=== PATIENT | female | born 1955 | race Caucasian/White ===

== ENCOUNTER 2020-12-16 07:14 | Outpatient (CLI) | payer MEDICARE, OTHER ==
[~2020-12-16] VITALS: Ht 157.5 cm; Wt 70.5 kg
[2020-12-19] MEDS ORDERED: METO-333 PO (11:34)
[2020-12-19] MEDS ORDERED: LEVO88CA4 PO (11:34)
[2020-12-19] MEDS ORDERED: NF-MAG64T PO (11:34)
[2020-12-19] MEDS ORDERED: B1/B1TAB5 PO (11:34)
[2020-12-19] MEDS ORDERED: FERR29CA PO (11:34)
[2020-12-19] MEDS ORDERED: MULT-178 PO (11:34)
[2020-12-19] MEDS ORDERED: VIT-10 PO (11:34)
[2020-12-19] MEDS ORDERED: AMIN1CAP5 PO (11:34)
[2020-12-19] MEDS ORDERED: LATA7.5D OU (11:34)
== END 2020-12-19 11:35 | disposition home or self-care (01) ==
LOC: PREOP 07:14
PROVIDERS: ATTEND Specialist
DX: Z01.818 Encounter for other preprocedural examination (principal)

== ENCOUNTER 2020-12-23 11:15 | Day surgery (SDC) | payer MEDICARE, OTHER ==
[~2020-12-23] VITALS: Ht 165.1 cm; Wt 70.5 kg
[~2020-12-23 11:15] MED LIST: AMIN1CAP5 PO; B1/B1TAB5 PO; FERR29CA PO; LATA7.5D OU; LEVO88CA4 PO; METO-333 PO; MULT-178 PO; NF-MAG64T PO; VIT-10 PO
[2020-12-23] MEDS ORDERED: MIDAZOLAM 2 MG/2 ML (VERSED) VIAL ONE (11:21)
[2020-12-23] MEDS: TETRACAINE 0.5% OPHTH SOLN 4 ML BTL (SINGLE DOSE ONLY) OU PRN ×4 (11:25→11:41)
[2020-12-23] MEDS ORDERED: MOXIFLOXACIN OPHTH SOLN 5 MG/ML 0.3 ML SYRINGE OP ONE (11:30)
[2020-12-23] MEDS ORDERED: LIDOCAINE PF 1% 2 ML VIAL IR PRN (11:30)
[2020-12-23] MEDS: TROPICAMIDE 1% OPH SOLN (MYDRIACYL) 15 ML BTL OP SCH ×3 (11:30→11:42)
[2020-12-23] MEDS ORDERED: TIMOLOL MALEATE 0.5% 5 ML (TIMOPTIC) BTL OU PRN (11:30)
[2020-12-23] MEDS: PHENYLEPHRINE 10% OPHTH (NEO-SYN) 5 ML BTL OU SCH ×3 (11:30→11:42)
[2020-12-23] MEDS ORDERED: POVIDONE (BETADINE) OPHTH SOLN 5% 30 ML OP ONE (11:30)
[2020-12-23 11:45] VITALS: BP 167/74
--- NOTE | 2020-12-23 11:55 | Ophthalmologist Pre-Op Note ---
Pre-Operative Progress Note H&P Reviewed The H&P was reviewed, patient examined and no changes noted. Date H&P Reviewed: Dec 23, 2020 Time H&P Reviewed: 11:55 Pre-Op Dx Cataract, Right Eye WOO RAMIREZ MD Dec 23, 2020 11:55
--- NOTE | 2020-12-23 12:14 | Ophthalmology Operative Report ---
Cataract removal/placement IOL PREOPERATIVE DIAGNOSIS: Cataract Right Eye POSTOPERATIVE DIAGNOSIS: Cataract Right Eye PROCEDURE: Cataract removal and placement of posterior chamber implant, right eye SURGEON: Anish Ramirez ANESTHESIA: Topical with sedation COMPLICATIONS: None ESTIMATED BLOOD LOSS: Minimal DESCRIPTION OF PROCEDURE: After proper informed consent was obtained, the patient, a 65 female, was taken to the Operating Room and the right eye was anesthetized with tetracaine. The right eye was then prepped and draped in the usual manner. A wire lid speculum was placed. A paracentesis was made at the left hand position. Preservative free lidocaine was injected into the anterior chamber followed by viscoelastic. A clear corneal incision was made in the temporal position. A capsulorrhexis was preformed and the central nuclear and cortical material were removed. The posterior capsule was polished and Juaquin 19.5 AU00T0 IOL was placed into the capsular bag. The residual viscoelastic was aspirated and balanced saline solution was injected into the anterior chamber. Moxifloxacin was injected into the anterior chamber. The wound was checked and found to be water tight. The patient tolerated the procedure well without complications. ANISH RAMIREZ MD Dec 23, 2020 12:14
[2020-12-23 12:26] VITALS: BP 100/77
[2020-12-23] MEDS ORDERED: acetaZOLAMIDE ER 500 MG CAP (DIAMOX SEQUELS) PO ONE (12:30)
--- NOTE | 2020-12-23 13:32 | Anesthesia-General Post-Op ---
MAC Patient Condition Mental Status/LOC: Same as Preop Cardiovascular: Satisfactory Nausea/Vomiting: Absent Respiratory: Satisfactory Pain: Controlled Complications: Absent Post Op Complications Complications None Follow Up Care/Instructions Patient Instructions None needed. Anesthesiology Discharge Order Discharge Order Patient is doing well, no complaints, stable vital signs, no apparent adverse anesthesia problems. No complications reported per nursing. DANTE DONOVAN CRNA Dec 23, 2020 13:31
== END 2020-12-23 12:28 ==
LOC: SDC 11:15
PROVIDERS: ATTEND Specialist
DX: H25.11 Age-related nuclear cataract, right eye (principal); I10 Essential (primary) hypertension; E03.9 Hypothyroidism, unspecified; E78.00 Pure hypercholesterolemia, unspecified; Z79.899 Other long term (current) drug therapy
CPT/HCPCS: 66984; V2632

== ENCOUNTER 2021-01-02 07:00 | Outpatient (CLI) | payer MEDICARE, OTHER | END 2021-01-02 15:16 | LOC: PREOP 07:00 | PROVIDERS: ATTEND Specialist | DX: Z01.818 Encounter for other preprocedural examination (principal) ==

== ENCOUNTER 2021-01-06 10:36 | Day surgery (SDC) | payer MEDICARE, OTHER ==
[~2021-01-06] VITALS: Ht 165.1 cm; Wt 70.5 kg
[2021-01-06] MEDS: TETRACAINE 0.5% OPHTH SOLN 4 ML BTL (SINGLE DOSE ONLY) OU PRN ×4 (10:44→11:05)
[2021-01-06] MEDS ORDERED: MOXIFLOXACIN OPHTH SOLN 5 MG/ML 0.3 ML SYRINGE OP ONE (10:45)
[2021-01-06] MEDS ORDERED: POVIDONE (BETADINE) OPHTH SOLN 5% 30 ML OP ONE (10:45)
[2021-01-06] MEDS ORDERED: TIMOLOL MALEATE 0.5% 5 ML (TIMOPTIC) BTL OU PRN (10:45)
[2021-01-06] MEDS ORDERED: LIDOCAINE PF 1% 2 ML VIAL IR PRN (10:45)
[2021-01-06 10:46] VITALS: BP 147/72
[2021-01-06] MEDS: PHENYLEPHRINE 10% OPHTH (NEO-SYN) 5 ML BTL OU SCH ×3 (10:51→11:05)
[2021-01-06] MEDS: TROPICAMIDE 1% OPH SOLN (MYDRIACYL) 15 ML BTL OP SCH ×3 (10:51→11:05)
[2021-01-06] MEDS ORDERED: MIDAZOLAM 2 MG/2 ML (VERSED) VIAL ONE (11:22)
--- NOTE | 2021-01-06 11:30 | Ophthalmologist Pre-Op Note ---
Pre-Operative Progress Note H&P Reviewed The H&P was reviewed, patient examined and no changes noted. Date H&P Reviewed: Jan 06, 2021 Time H&P Reviewed: 11:30 Pre-Op Dx Cataract, Left Eye WOO RAMIREZ MD Jan 06, 2021 11:30
--- NOTE | 2021-01-06 11:58 | Ophthalmology Operative Report ---
Cataract removal/placement IOL PREOPERATIVE DIAGNOSIS: Cataract Left Eye POSTOPERATIVE DIAGNOSIS: Cataract Left Eye PROCEDURE: Cataract removal and placement of posterior chamber implant, left eye SURGEON: Anish Ramirez ANESTHESIA: Topical with sedation COMPLICATIONS: None ESTIMATED BLOOD LOSS: Minimal DESCRIPTION OF PROCEDURE: After proper informed consent was obtained, the patient, a 65 female, was taken to the Operating Room and the left eye was anesthetized with tetracaine. The left eye was then prepped and draped in the usual manner. A wire lid speculum was placed. A paracentesis was made at the left hand position. Preservative free lidocaine was injected into the anterior chamber followed by viscoelastic. A clear corneal incision was made in the temporal position. A capsulorrhexis was preformed and the central nuclear and cortical material were removed. The posterior capsule was polished and an Juaquin 18.5 AU00T0 was placed into the capsular bag. The residual viscoelastic was aspirated and balanced saline solution was injected into the anterior chamber. Moxifloxacin was injected into the anterior chamber. The wound was checked and found to be water tight. The patient tolerated the procedure well without complications. ANISH RAMIREZ MD Jan 06, 2021 11:58
[2021-01-06 12:03] VITALS: BP 142/69
[2021-01-06] MEDS ORDERED: acetaZOLAMIDE ER 500 MG CAP (DIAMOX SEQUELS) PO ONE (12:30)
--- NOTE | 2021-01-06 13:53 | Anesthesia-General Post-Op ---
MAC Patient Condition Mental Status/LOC: Same as Preop Cardiovascular: Satisfactory Nausea/Vomiting: Absent Respiratory: Satisfactory Pain: Controlled Complications: Absent Post Op Complications Complications None Follow Up Care/Instructions Patient Instructions None needed. Anesthesiology Discharge Order Discharge Order Patient was seen after the procedure and she was doing well, no complaints, stable vital signs, no apparent adverse anesthesia problems. DUTCH ARMIJO DO Jan 06, 2021 13:53
== END 2021-01-06 12:03 | disposition home or self-care (01) ==
LOC: SDC 10:36
PROVIDERS: ATTEND Specialist
DX: H25.12 Age-related nuclear cataract, left eye (principal); I10 Essential (primary) hypertension; H40.9 Unspecified glaucoma; E03.9 Hypothyroidism, unspecified; E78.00 Pure hypercholesterolemia, unspecified; Z79.890 Hormone replacement therapy; Z79.899 Other long term (current) drug therapy
CPT/HCPCS: 66984; V2632

== ENCOUNTER 2022-09-27 21:27 | Emergency (ER) | payer OTHER, MEDICARE ==
[~2022-09-27] VITALS: Ht 152 cm; Wt 72.5 kg
[2022-09-27 21:28] VITALS: BP 211/84
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
== END 2022-09-27 21:55 | disposition home or self-care (01) ==
LOC: EDUNIT# 21:27 → ER FS 21:28
DX: S00.511A Abrasion of lip, initial encounter (principal); M79.671 Pain in right foot; V89.2XXA Person injured in unspecified motor-vehicle accident, traffic, initial encounter; Y92.410 Unspecified street and highway as the place of occurrence of the external cause
CPT/HCPCS: 73630